=== PATIENT | female | born 1990 | race Caucasian/White ===

== ENCOUNTER 2016-08-08 20:10 | Inpatient (IN) | payer MEDICAID ==
[2016-08-08] MEDS ORDERED: ZOLPIDEM TARTRATE 5 MG TABLET PO PRN (20:37)
[2016-08-08] MEDS ORDERED: RINGERS SOLUTION,LACTATED 1,000 ML IV PRN (20:37)
[2016-08-08] MEDS ORDERED: MAG HYDROX/AL HYDROX/SIMETH SUSP 30 ML UDCUP PO PRN (20:37)
[2016-08-08] MEDS ORDERED: ACETAMINOPHEN 325 MG TABLET PO PRN (20:37)
[2016-08-08] MEDS ORDERED: RINGERS SOLUTION,LACTATED 300 ML IV ONE (20:37)
[2016-08-08] MEDS ORDERED: DINOPROSTONE 10 MG VAGINAL INSERT.SR ONE (21:21)
[2016-08-08 21:32] LABS: ABSOLUTE EOSINOPHILS # (AUTO) 0.1 10^3/uL (0.0-0.6); ABSOLUTE LYMPHOCYTES (AUTO) 1.1 10^3/uL (0.5-4.7); ABSOLUTE MONOCYTES (AUTO) 0.5 10^3/uL (0.1-1.4); ABSOLUTE NEUT (AUTO) 7.3 10^3/uL (1.7-8.2); BASOPHILS % (AUTO) 0.2 % (0-2); EOSINOPHILS % (AUTO) 0.6 % (0-6); HEMATOCRIT 33.9 % (36.0-47.0); HEMOGLOBIN 11.8 g/dL (12.0-15.5); HGB HCT DIFFERENCE 1.5; LYMPHOCYTES % (AUTO) 12.2 % (13-45); MEAN CORPUSCULAR HEMOGLOBIN 30.4 pg (27.0-33.4); MEAN CORPUSCULAR HGB CONC 34.6 g/dL (32.0-36.0); MEAN CORPUSCULAR VOLUME 88 fl (80-97); MONOCYTES % (AUTO) 5.7 % (3-13); RED BLOOD COUNT 3.87 10^6/uL (3.72-5.28); RED CELL DISTRIBUTION WIDTH 16.1 % (11.5-14.0); SEGMENTED NEUTROPHILS % (AUTO) 81.3 % (42-78)
[2016-08-08 21:33] LABS: APPEARANCE,URINE CLOUDY; BILIRUBIN,URINE NEGATIVE (NEGATIVE); GLUCOSE, URINE NEGATIVE (NEGATIVE); KETONES,URINE NEGATIVE (NEGATIVE); LEUKOCYTE ESTERASE,URINE MODERATE (NEGATIVE); NITRITE,URINE NEGATIVE (NEGATIVE); PROTEIN,URINE NEGATIVE (NEGATIVE); URINE SPECIFIC GRAVITY 1.016; UROBILINOGEN,URINE NEGATIVE mg/dL (<2.0)
[2016-08-08 21:48] LABS: URINE BARBITURATES SCREEN NEGATIVE; URINE METHADONE SCREEN NEGATIVE; URINE OPIATES LOW NEGATIVE; URINE PHENCYCLIDINE SCREEN NEGATIVE
[2016-08-08] MEDS ORDERED: DINOPROSTONE 10 MG VAGINAL INSERT.SR PV ONE (22:15)
[2016-08-09] MEDS ORDERED: OXYTOCIN/NORMAL SALINE 20 UNIT/1,000 ML RTUINJ ONE ×2 (10:53→22:36)
[2016-08-09] MEDS ORDERED: OXYTOCIN/NORMAL SALINE 1,000 ML IV PRN ×2 (11:14→22:57)
[2016-08-09] MEDS ORDERED: NALBUPHINE HCL INJ 10 MG/1 ML AMPULE ONE (19:34)
[2016-08-09] MEDS ORDERED: ONDANSETRON HCL 8 MG TABLET ONE (19:35)
[2016-08-09] MEDS ORDERED: NALBUPHINE HCL INJ 10 MG/1 ML AMPULE INJ ONE (20:00)
[2016-08-09] MEDS ORDERED: ONDANSETRON HCL 8 MG TABLET PO ONE (20:00)
[2016-08-09] MEDS ORDERED: EPHEDRINE SULFATE INJ 50 MG/1 ML AMPULE IV PRN (20:42)
[2016-08-09] MEDS ORDERED: BUPIVACAINE HCL 0.25 % INJ/PF (2.5 MG/1 ML) 30 ML VIAL INFIL ONE (20:42)
[2016-08-09] MEDS ORDERED: EPHEDRINE SULFATE INJ 50 MG/1 ML AMPULE IV ONE (20:42)
[2016-08-09] MEDS ORDERED: BENZOIN/ALOE VERA/STORAX/TOLU TINCTURE 60 ML TP PRN (20:42)
[2016-08-09] MEDS ORDERED: FENTANYL/BUPIVACAINE/NS/PF 100 ML EPI PRN (20:42)
[2016-08-09] MEDS ORDERED: BUPIVACAINE HCL 0.25 % INJ/PF (2.5 MG/1 ML) 30 ML VIAL ONE (20:55)
[2016-08-09] MEDS ORDERED: FENTANYL/BUPIVACAINE/NS/PF 200 MCG/100 ML RTUINJ EPI ONE (20:55)
[2016-08-09] MEDS ORDERED: EPHEDRINE SULFATE INJ 50 MG/1 ML AMPULE ONE (20:55)
[2016-08-09] MEDS ORDERED: LIDOCAINE 1% INJ-PF (10 MG/ML) 30 ML SDV ONE (22:35)
[2016-08-09] MEDS ORDERED: MISOPROSTOL 0.2 MG TABLET ONE (22:35)
[2016-08-09] MEDS ORDERED: BENZOCAINE/MENTHOL AEROSOL SPRAY 56 ML TOP PRN (22:57)
[2016-08-09] MEDS ORDERED: ZOLPIDEM TARTRATE 5 MG TABLET PO PRN (22:57)
[2016-08-09] MEDS ORDERED: ACETAMINOPHEN WITH CODEINE #3 TABLET PO PRN (22:57)
[2016-08-09] MEDS ORDERED: DIBUCAINE 1% OINTMENT 28 GM TP PRN (22:57)
[2016-08-09] MEDS ORDERED: MEASLES,MUMPS&RUBELLA VACC/PF 0.5 ML VIAL SUBCUT PRN (22:57)
[2016-08-09] MEDS ORDERED: DIPH/PERTUSS(ACELL)/TETANUS VAC/PF 0.5 ML SYR (>=10YO) IM PRN (22:57)
[2016-08-09] MEDS ORDERED: IBUPROFEN 800 MG TABLET ONE (23:48)
[2016-08-10] MEDS: ACETAMINOPHEN WITH CODEINE #3 TABLET PO PRN ×4 (01:09→21:45)
[2016-08-10] MEDS: IBUPROFEN 800 MG TABLET PO SCH ×3 (05:39→21:45)
[2016-08-10 07:16] LABS: HEMATOCRIT 30.4 % (36.0-47.0); HEMOGLOBIN 10.5 g/dL (12.0-15.5); HGB HCT DIFFERENCE 1.1; MEAN CORPUSCULAR HEMOGLOBIN 30.4 pg (27.0-33.4); MEAN CORPUSCULAR HGB CONC 34.6 g/dL (32.0-36.0); MEAN CORPUSCULAR VOLUME 88 fl (80-97); RED BLOOD COUNT 3.45 10^6/uL (3.72-5.28); WHITE BLOOD COUNT 11.1 10^3/uL (4.0-10.5)
--- NOTE | 2016-08-10 08:52 | PDOC PROGRESS REPORT ---
Subjective-OB Subjective: Post Delivery Day: 26 year old. c/o migraine LOUIE behind left eye-has hx frequent migraines, usu responsive to Ibuprofen. Physical Exam (OB) Vital Signs: Temp Pulse Resp BP Pulse Ox 97.6 F 93 15 131/72 H 100 08/10/16 07:38 08/10/16 07:38 08/10/16 07:38 08/10/16 07:38 08/10/16 07:38 Intake & Output 08/09/16 08/10/16 08/11/16 06:59 06:59 06:59 Weight 136.985 kg - Lochia Lochia Amount: Small 10-25 ml Lochia Color: Rubra/Red - Abdomen Description: Soft, Round Hernia Present: No Bowel Sounds: Normoactive Flatus Presence: Absent Stool: No Fundal Description: Firm, Midline Fundal Height: u/u - u/2 Objective-Diagnostic Laboratory: 08/10/16 06:38 08/10/16 06:38 WBC 11.1 H RBC 3.45 L Hgb 10.5 L Hct 30.4 L MCV 88 MCH 30.4 MCHC 34.6 RDW 16.0 H Plt Count 161
[2016-08-10] MEDS: FERROUS SULFATE 325 MG TABLET PO SCH ×2 (10:57→17:52)
[2016-08-10] MEDS: PRENATAL VITAMIN W-O CA NO5/FE FUMARATE/FA CAPSULE PO SCH (10:58)
[2016-08-10] MEDS: DOCUSATE SODIUM 100 MG CAPSULE PO SCH ×2 (10:58→17:52)
[2016-08-10] MEDS: SENNOSIDES/DOCUSATE 8.6-50 MG 1 EACH TABLET PO SCH (10:58)
[2016-08-11] MEDS: IBUPROFEN 800 MG TABLET PO SCH ×3 (05:49→21:39)
[2016-08-11] MEDS: ACETAMINOPHEN WITH CODEINE #3 TABLET PO PRN ×3 (05:52→15:25)
--- NOTE | 2016-08-11 08:38 | PDOC PROGRESS REPORT ---
Subjective-OB Subjective: Post Delivery Day: 26 year old. Still having headaches when upright. States anesthesiologist to recheck her today. Wants to go home if headache resolved. Physical Exam (OB) Vital Signs: Temp Pulse Resp BP Pulse Ox 97.7 F 70 18 106/55 L 100 08/10/16 20:01 08/10/16 20:01 08/10/16 20:01 08/10/16 20:01 08/10/16 20:01 Intake & Output 08/10/16 08/11/16 08/12/16 06:59 06:59 06:59 Intake Total 450 Balance 450 - Lochia Lochia Amount: Scant < 10 ml Lochia Color: Rubra/Red - Abdomen Description: Soft Hernia Present: No Bowel Sounds: Normoactive Flatus Presence: Present Stool: No Fundal Description: Firm, Midline Fundal Height: u/u - u/2 Objective-Diagnostic Laboratory: 08/10/16 06:38
--- NOTE | 2016-08-11 08:45 | PDOC DISCHARGE SUMMARY ---
Final Diagnosis Discharge Date: 08/11/16 - Final Diagnosis (1) Abnormal Pap smear of cervix Is this a current diagnosis for this admission?: Yes (2) Delivery normal Is this a current diagnosis for this admission?: Yes (3) Obesity Is this a current diagnosis for this admission?: Yes (4) Is this a current diagnosis for this admission?: Yes Discharge Data - Discharge Medication Home Medications: Pnv W-O Ca No5/Fe Fumarate/FA [-U Multiple Vitamin Capsule] 1 each PO ACBRKFST 09/13/11 Docusate Sodium [Colace 100 mg Capsule] 100 mg PO BID #30 capsule 08/11/16 Ferrous Sulfate [Feosol 325 mg Tablet] 325 mg PO DAILY #30 tablet 08/11/16 Ibuprofen [Motrin 800 mg Tablet] 800 mg PO Q8 #30 tablet 08/11/16 Gestational Age: 41.0 wks Reason(s) for Admission: Induction of Labor Procedures: NST Intrapartum Procedure(s): Spontaneous Vaginal Delivery - Data Baby 1 Male at 1 minute: 8 at 5 minutes: 9 Weight: 3.742 kg Home with Mother: Yes Complications: No - Diagnosis Test Laboratory: Temp Pulse Resp BP Pulse Ox 97.7 F 70 18 106/55 L 100 08/10/16 20:01 08/10/16 20:01 08/10/16 20:01 08/10/16 20:01 08/10/16 20:01 08/08/16 08/08/16 08/10/16 20:26 21:08 06:38 RBC 3.87 3.45 L Hgb 11.8 L 10.5 L Hct 33.9 L 30.4 L Urine Opiates Screen NEGATIVE - Discharge information/Instructions Discharge Activity: Activity As Tolerated, Balance Activity w/Rest, No Lifting Over 10 Pounds, Pelvic Rest, Slowly Increase Activity, No tub bath Discharge Diet: Regular Disposition: HOME, SELF-CARE Follow up with: [facility] in: 4, Weeks
[2016-08-11] MEDS: FERROUS SULFATE 325 MG TABLET PO SCH ×2 (09:27→17:40)
[2016-08-11] MEDS: SENNOSIDES/DOCUSATE 8.6-50 MG 1 EACH TABLET PO SCH (09:27)
[2016-08-11] MEDS: PRENATAL VITAMIN W-O CA NO5/FE FUMARATE/FA CAPSULE PO SCH (09:27)
[2016-08-11] MEDS: DOCUSATE SODIUM 100 MG CAPSULE PO SCH ×2 (09:28→17:41)
[2016-08-11] MEDS ORDERED: RINGERS SOLUTION,LACTATED 500 ML IV ONE (19:15)
[2016-08-12] MEDS: IBUPROFEN 800 MG TABLET PO SCH (06:30)
--- NOTE | 2016-08-12 09:04 | PDOC PROGRESS REPORT ---
Subjective-OB Subjective: Post Delivery Day: 26 year old. Denies any needs at this time. States headaches better since blood patch done. Ready to go home. Physical Exam (OB) Vital Signs: Temp Pulse Resp BP Pulse Ox 98.4 F 73 18 137/69 H 100 08/11/16 19:35 08/11/16 19:35 08/11/16 19:35 08/11/16 19:35 08/11/16 19:35 Intake & Output 08/11/16 08/12/16 08/13/16 06:59 06:59 06:59 Intake Total 450 3410 Balance 450 3410 Baby 1 Male 3.742 kg - Lochia Lochia Amount: Scant < 10 ml Lochia Color: Serosa/Brown - Abdomen Description: Soft, Round Hernia Present: No Bowel Sounds: Normoactive Flatus Presence: Present Stool: No Fundal Description: Firm, Midline Fundal Height: u/u - u/2 Objective-Diagnostic Laboratory: 08/10/16 06:38 Assessment and Plan(PN) - Assessment and Plan (1) Abnormal Pap smear of cervix Is this a current diagnosis for this admission?: Yes (2) Delivery normal Is this a current diagnosis for this admission?: Yes (3) Obesity Is this a current diagnosis for this admission?: Yes (4) Is this a current diagnosis for this admission?: Yes
--- NOTE | 2016-08-12 09:07 | PDOC DISCHARGE SUMMARY ---
Final Diagnosis Discharge Date: 08/12/16 - Final Diagnosis (1) Abnormal Pap smear of cervix Is this a current diagnosis for this admission?: Yes (2) Delivery normal Is this a current diagnosis for this admission?: Yes (3) Obesity Is this a current diagnosis for this admission?: Yes (4) Is this a current diagnosis for this admission?: Yes Discharge Data - Discharge Medication Home Medications: Pnv W-O Ca No5/Fe Fumarate/FA [-U Multiple Vitamin Capsule] 1 each PO ACBRKFST 09/13/11 Docusate Sodium [Colace 100 mg Capsule] 100 mg PO BID #30 capsule 08/11/16 Ferrous Sulfate [Feosol 325 mg Tablet] 325 mg PO DAILY #30 tablet 08/11/16 Ibuprofen [Motrin 800 mg Tablet] 800 mg PO Q8 #30 tablet 08/11/16 Gestational Age: 41.0 wks Reason(s) for Admission: Induction of Labor Procedures: NST, Ultrasound Intrapartum Procedure(s): Spontaneous Vaginal Delivery - Data Baby 1 Male at 1 minute: 8 at 5 minutes: 9 Weight: 3.742 kg - Diagnosis Test Laboratory: Temp Pulse Resp BP Pulse Ox 98.4 F 73 18 137/69 H 100 08/11/16 19:35 08/11/16 19:35 08/11/16 19:35 08/11/16 19:35 08/11/16 19:35 08/08/16 08/08/16 08/10/16 20:26 21:08 06:38 RBC 3.87 3.45 L Hgb 11.8 L 10.5 L Hct 33.9 L 30.4 L Urine Opiates Screen NEGATIVE - Discharge information/Instructions Discharge Activity: Activity As Tolerated, Balance Activity w/Rest, No Lifting Over 10 Pounds, Pelvic Rest, Slowly Increase Activity, No tub bath Discharge Diet: Regular Disposition: HOME, SELF-CARE Follow up with: [facility] in: 4, Weeks
[2016-08-12] MEDS: SENNOSIDES/DOCUSATE 8.6-50 MG 1 EACH TABLET PO SCH (11:03)
[2016-08-12] MEDS: FERROUS SULFATE 325 MG TABLET PO SCH (11:03)
[2016-08-12] MEDS: ACETAMINOPHEN WITH CODEINE #3 TABLET PO PRN (11:03)
[2016-08-12] MEDS: DOCUSATE SODIUM 100 MG CAPSULE PO SCH (11:03)
[2016-08-12] MEDS: PRENATAL VITAMIN W-O CA NO5/FE FUMARATE/FA CAPSULE PO SCH (11:03)
[2016-08-12 12:24] VITALS: BP 130/70
--- NOTE | 2016-08-14 12:03 | Delivery Summary ---
Del Sum A-C Datetime Report Generated by CPN: 08/14/2016 12:03 DELIVERY PERSONNEL DELIVERY PERSONNEL: ,[id number] Delivery Doctor:: Ciarra Tang MD Labor and Delivery Nurse:: Melia Ayers RNadvertising representative Nurse:: Adina Bergman RN Plc Technician/SPECTACLE TRUER: Nichole Semar, WATCH TRAIN ASSEMBLER MATERNAL INFORMATION Delivery Anesthesia: Epidural Medications After Delivery: Pitocin Drip 20 Units/1000ml NSS Estimated Blood Loss (ml): 200 Maternal Complications: None LABOR SUMMARY EDC: 08/02/2016 00:00 No. Babies in Womb: 1 Attempted: No Labor Anesthesia: Epidural LABOR INFORMATION Reason for Induction: Post Dates Onset of Labor: 08/09/2016 20:38 Complete Dilatation: 08/09/2016 22:38 Cervical Ripening Agents: Cervidil Oxytocin: Induction Group B Beta Strep: Negative Antibiotics # of Doses: N/A Antibiotics Time of Last Dose: N/A Steroids Given: None Reason Steroids Not Administered: Not Applicable MEMBRANES Membranes Rupture Method: Artificial Rupture of Membranes: 08/09/2016 22:37 Length of Rupture (hr): 0.18 Amniotic Fluid Color: Clear Amniotic Fluid Amount: Moderate Amniotic Fluid Odor: Normal STAGES OF LABOR Stage 1 hr: 2 Stage 1 min: 0 Stage 2 hr: 0 Stage 2 min: 10 Stage 3 hr: 0 Stage 3 min: 5 Total Time in Labor hr: 2 Total Time in Labor min: 15 VAGINAL DELIVERY Episiotomy: None Laceration Extension: N/A Laceration Type: None Laceration Repair: No BABY A INFORMATION Infant Delivery Date/Time: 08/09/2016 22:48 Method of Delivery: Vaginal Born in Route : No : N/A Forceps: N/A Vacuum Extraction: N/A Shoulder Dystocia : No PRESENTATION/POSITION BABY A Presentation: Cephalic Cephalic Presentation: Vertex Vertex Position: Left Occipital Anterior Breech Presentation: N/A PLACENTA INFORMATION BABY A Placenta Delivery Time : 08/09/2016 22:53 Placenta Method of Delivery: Spontaneous Placenta Status: Delivered SCORES BABY A Heart Rate 1 min: >100 bpm Resp Effort 1 min: Good Cry Reflex Irritability 1 min: Cough or Sneeze or Pulls Away Muscle Tone 1 min: Active Motion Color 1 min: Blue/Pale Resuscitation Effort 1 min: Tactile Stimulation SCORE 1 MIN: 8 Heart Rate 5 min: >100 bpm Resp Effort 5 min: Good Cry Reflex Irritability 5 min: Cough or Sneeze or Pulls Away Muscle Tone 5 min: Active Motion Color 5 min: Body [place], Extremities Blue Resuscitation Effort 5 min: Tactile Stimulation SCORE 5 MIN: 9 INFORMATION BABY A Gestational Age at Delivery: 41.0 Gestational Status: Late Term- 41- 41.6 Weeks Infant Outcome : Liveborn Infant Condition : Stable Sex: Male IDENTIFICATION BABY A Infant Verification Date/Time: 08/09/2016 22:56 ID Band Number: [id number] Infant RN Verifying Infant: Mesfin Bergman RN Additional Verifying Personnel: Maren Stafford US WEIGHT/LENGTH BABY A Infant Birthweight (gm): 3730 Weight (lb): 8 Infant Weight (oz): 4 Length (in): 20.50 Length (cm): 52.07 CORD INFORMATION BABY A No. Cord Vessels: 3 Nuchal Cord : N/A Cord Blood Taken: Yes-For Eval (Mom's Blood Type - or O+) Suction: None ASSESSMENT BABY A Infant Complications: None Physical Findings at Delivery: Within Normal Limits Infant Respirations: Appears Normal Skin to Skin: Yes Skin to Skin Time (min): 60 Foreman Or Supervisor And Operator/ALS Called : No Infant Care By: Mesfin Bergman RN Transferred To: Remains with Mother SIGNATURES Signature: with User ID: Luis Alfredo
--- NOTE | 2016-08-14 12:04 | Admission Physical ---
Datetime Report Generated by CPN: 08/14/2016 12:03 CURRENT ADMISSION Chief Complaint: Scheduled Induction of Labor Indication for Induction: Post Dates Admit Plan: Admit to Unit; Initiate Labor Induction Protocol ALLERGIES Medication Allergies: No Medication Allergies: red dye/Hives (08/08/2016) Medication Allergies: NKDA Latex: No Latex Allergies Food Allergies: Red dye #3 Environmental Allergies: None OBSTETRICAL HISTORY EDC: 08/02/2016 00:00 : 3 Para: 2 Term: 2 : 0 SAB: 0 IAB: 0 Ectopic: 0 Livin Cesareans: 0 VBACs: 0 Multiple Births: 0 Gestational Diabetes: No Rh Sensitization: No Incompetent Cervix: No JOHN: No Infertility: No ART Treatment: No Uterine Anomaly: No IUGR: No Hx Previous C/S: No Macrosomia: No Hx Loss/Stillborn: No PIH: No Hx : No Placenta Previa/Abruption: No Depression/PP Depression: No PTL/PROM: No SEE RECORDS Alcohol: No Marijuana : No Cocaine: No Cigarettes: Never Smoker. [id number] MEDICAL HISTORY Diabetes: No Blood Transfusion: No Pulmonary Disease (Asthma, TB): No Breast Disease: No Hypertension: No Hand Trucker Surgery: No Heart Disease: No Hosp/Surgery: No Autoimmune Disorder: No Anesthetic Complications: No Kidney Disease: No Abnormal Pap Smear: Yes Neuro/Epilepsy: No Other Medical Diseases: No Hepatitis/Liver Disease: No Significant Family History: No Varicosities/Phlebitis: No Trauma/Violence : No Medical History Comments: Abnormal pap-ASCUS with HRHPV; Colpo w/biopsy-in 07/17/16-LGSIL INFECTIOUS HISTORY Gonorrhea: No Genital Herpes: No Chlamydia: No Tuberculosis: No Syphilis: No Hepatitis: No HIV/AIDS Exposure: No Rash or Viral Illness: No HPV: No PHYSICAL EXAM General: Normal HEENT: Normal Neurologic: Normal Thyroid: Normal Heart: Normal Lungs: Normal Breast: Normal Back: Normal Abdomen: Normal Genitourinary Exam: Normal Extremities: Normal DTRs: Normal Pelvic Type: Adequate Vital Signs: Reviewed VAGINAL EXAM Dilatation: 1 Effacement: 50 Station: -3 MEMBRANES Pooling: Negative FETUS A Monitoring: External US FHR- Baseline: 130 Variability: Moderate 6-25bpm Accelerations: 10X10 Decelerations: None Estimated Weight (gm): 4000 Presentation: Vertex PLANS FOR LABOR AND DELIVERY Labor and Delivery: None Pain Management: Epidural Feeding Preference: Both Circumcision: Yes INFORMED CONSENT Signature: with User ID: Luis Alfredo
== END 2016-08-12 12:55 | disposition home or self-care (01) | DRG 775 ==
LOC: LR 20:10 → 2S 08-10 00:59
PROVIDERS: ADMIT Obstetrics & Gynecology; ATTEND Obstetrics & Gynecology
PROC: 4A1HXCZ Monitoring of Products of Conception, Cardiac Rate, External Approach (ICD-10-PCS; 2016-08-08)
PROC: 3E0P7GC Introduction of Other Therapeutic Substance into Female Reproductive, Via Natural or Artificial Opening (ICD-10-PCS; 2016-08-08)
PROC: 10E0XZZ Delivery of Products of Conception, External Approach (ICD-10-PCS; principal; 2016-08-09)
PROC: 3E033VJ Introduction of Other Hormone into Peripheral Vein, Percutaneous Approach (ICD-10-PCS; 2016-08-09)
DX: O48.0 Post-term pregnancy (principal); O99.355 Diseases of the nervous system complicating the puerperium; Z68.41 Body mass index [BMI] 40.0-44.9, adult; O99.214 Obesity complicating childbirth; E66.9 Obesity, unspecified; G43.909 Migraine, unspecified, not intractable, without status migrainosus; Z3A.41 41 weeks gestation of pregnancy; Z37.0 Single live birth
CPT/HCPCS: 36415; 62273; 80307; 81005; 85025; 85027; 86592; 86850; 86900; 86901; 94760; J2300; J2590; J3490; S0119

== ENCOUNTER 2017-03-04 17:37 | Emergency (ER) | payer SELFPAY ==
--- NOTE | 2017-03-04 19:21 | ER Document Report ---
ED Medical Screen (RME) - General Chief Complaint: Abdominal pain, vomiting Stated Complaint: ABDOMINAL PAIN Time Seen by Provider: 03/04/17 19:20 Notes: Patient states that she has been having abdominal pain as well as some loose stool with blood in it. She also had some nausea. TRAVEL OUTSIDE OF THE [place] IN LAST 30 DAYS: No - Related Data Allergies/Adverse Reactions: red dye Allergy (Unknown, Verified 08/11/16 06:25) Hives red dye #3 Allergy (Mild, Uncoded 08/08/16 20:28) Hives Home Medications: Current Home Medications No Home Medications 03/04/17 [History] Past Medical History - Immunizations Hx Diphtheria, Pertussis, Tetanus Vaccination: Yes Physical Exam - Vital signs Vitals: Temp Pulse Resp BP Pulse Ox 98.3 F 88 14 139/96 H 98 03/04/17 17:42 03/04/17 17:42 03/04/17 17:42 03/04/17 17:42 03/04/17 17:42 Course - Vital Signs Vital signs: Temp Pulse Resp BP Pulse Ox 98.3 F 88 14 139/96 H 98 03/04/17 17:42 03/04/17 17:42 03/04/17 17:42 03/04/17 17:42 03/04/17 17:42
[2017-03-04 20:01] LABS: APPEARANCE,URINE CLEAR; BILIRUBIN,URINE NEGATIVE (NEGATIVE); GLUCOSE, URINE NEGATIVE (NEGATIVE); KETONES,URINE NEGATIVE (NEGATIVE); LEUKOCYTE ESTERASE,URINE TRACE (NEGATIVE); NITRITE,URINE NEGATIVE (NEGATIVE); PROTEIN,URINE NEGATIVE (NEGATIVE); URINE SPECIFIC GRAVITY 1.019
[2017-03-04 20:10] LABS: ABSOLUTE EOSINOPHILS # (AUTO) 0.1 10^3/uL (0.0-0.6); ABSOLUTE LYMPHOCYTES (AUTO) 1.6 10^3/uL (0.5-4.7); ABSOLUTE MONOCYTES (AUTO) 0.3 10^3/uL (0.1-1.4); ABSOLUTE NEUT (AUTO) 4.2 10^3/uL (1.7-8.2); BASOPHILS % (AUTO) 0.3 % (0-2); EOSINOPHILS % (AUTO) 2.2 % (0-6); HEMATOCRIT 37.2 % (36.0-47.0); HGB HCT DIFFERENCE 1.8; LYMPHOCYTES % (AUTO) 25.5 % (13-45); MEAN CORPUSCULAR HEMOGLOBIN 29.7 pg (27.0-33.4); MEAN CORPUSCULAR VOLUME 85 fl (80-97); MONOCYTES % (AUTO) 4.6 % (3-13); RED BLOOD COUNT 4.39 10^6/uL (3.72-5.28); RED CELL DISTRIBUTION WIDTH 13.6 % (11.5-14.0); SEGMENTED NEUTROPHILS % (AUTO) 67.4 % (42-78); WHITE BLOOD COUNT 6.3 10^3/uL (4.0-10.5)
[2017-03-04 20:33] LABS: ALANINE AMINOTRANSFERASE 61 U/L (9-52); ALBUMIN 3.9 g/dL (3.5-5.0); ALKALINE PHOSPHATASE 65 U/L (38-126); ANION GAP 11 (5-19); ASPARTATE AMINO TRANSFERASE 31 U/L (14-36); BILIRUBIN,DIRECT 0.3 mg/dL (0.0-0.4); BILIRUBIN,TOTAL 0.3 mg/dL (0.2-1.3); BLOOD UREA NITROGEN 23 mg/dL (7-20); CARBON DIOXIDE 26 mmol/L (22-30); CHLORIDE 104 mmol/L (98-107); CREATININE RESULT 0.78 mg/dL (0.52-1.25); GLUCOSE 97 mg/dL (75-110); POTASSIUM 4.2 mmol/L (3.6-5.0); SODIUM 140.8 mmol/L (137-145); TOTAL PROTEIN 6.2 g/dL (6.3-8.2)
--- NOTE | 2017-03-04 21:54 | ER Document Report ---
ED GI/ - General Chief Complaint: Abdominal pain, vomiting Stated Complaint: ABDOMINAL PAIN Time Seen by Provider: 03/04/17 19:20 Notes: Patient is a 26 year old female that comes to the ED for chief complaint of abdominal pain started 3 days ago, she states she had 2 episodes of vomiting yesterday although this resolved, she states that she had a loose bowel movement with some bright red blood in it. She has not had any bleeding since last night. She denies current abdominal pain, nausea, she denies any fever, denies any recent travel, suspicious foods, or recent antibiotics. She denies any daily medications or surgeries. LMP 10 weeks ago, delivered a child 6 months ago and states her cycles are still irregular. TRAVEL OUTSIDE OF THE [place] IN LAST 30 DAYS: No - Related Data Allergies/Adverse Reactions: red dye Allergy (Unknown, Verified 08/11/16 06:25) Hives red dye #3 Allergy (Mild, Uncoded 08/08/16 20:28) Hives Past Medical History - General Information source: Patient - Social History Smoking Status: Never Smoker Frequency of alcohol use: None Drug Abuse: None Lives with: Family Family History: Reviewed & Not Pertinent Patient has suicidal ideation: No Patient has homicidal ideation: No - Medical History Medical History: Negative Renal/ Medical History: Denies: Hx Peritoneal Dialysis Surgical Hx: Negative - Immunizations Immunizations up to date: Yes Hx Diphtheria, Pertussis, Tetanus Vaccination: Yes Review of Systems - Review of Systems Constitutional: No symptoms reported EENT: No symptoms reported Cardiovascular: See HPI Respiratory: No symptoms reported Gastrointestinal: See HPI Genitourinary: No symptoms reported Female Genitourinary: No symptoms reported Musculoskeletal: No symptoms reported Skin: No symptoms reported Hematologic/Lymphatic: No symptoms reported Neurological/Psychological: No symptoms reported Physical Exam - Vital signs Vitals: Temp Pulse Resp BP Pulse Ox 98.3 F 88 14 139/96 H 98 03/04/17 17:42 03/04/17 17:42 03/04/17 17:42 03/04/17 17:42 03/04/17 17:42 Interpretation: Normal - General General appearance: Appears well, Alert In distress: None - HEENT Head: Normocephalic, Atraumatic Eyes: Normal Pupils: PERRL - Respiratory Respiratory status: No respiratory distress Chest status: Nontender Breath sounds: Normal Chest palpation: Normal - Cardiovascular Rhythm: Regular Heart sounds: Normal auscultation Murmur: No - Abdominal Inspection: Normal Distension: No distension Bowel sounds: Normal Tenderness: Nontender. No: Tender, McBurney's point, Fitzpatrick's sign, Guarding Organomegaly: No organomegaly - Back Back: Normal, Nontender. No: Tender - Extremities General upper extremity: Normal inspection, Nontender, Normal strength, Normal temperature General lower extremity: Normal inspection, Nontender, Normal strength, Normal temperature - Neurological Neuro grossly intact: Yes Cognition: Normal Orientation: AAOx4 [place] Coma Scale Eye Opening: Spontaneous [place] Coma Scale Verbal: Oriented [place] Coma Scale Motor: Obeys Commands Naty Coma Scale Total: 15 Speech: Normal Cranial nerves: Normal Cerebellar coordination: Normal Motor strength normal: LUE, RUE, LLE, RLE Additional motor exam normals: Equal rigging engineer Sensory: Normal - Psychological Associated symptoms: Normal affect, Normal mood - Skin Skin Temperature: Warm Skin Moisture: Dry Skin Color: Normal Course - Re-evaluation Re-evalutation: Soft nontender abdomen. Well-appearing patient. Unremarkable vital signs. Normal examination otherwise. CBC does not show anemia or leukocytosis, chemistry unremarkable, urinalysis unremarkable, test is negative. Discussed with patient all details. Recommended a rectal exam to establish if she has external or internal hemorrhoids, although her reported symptoms are suggestive of internal hemorrhoids. Patient declines. She requests treatment without rectal examination. I also offered to test her stools, she declined this as well. Recommended stool softener, symptom management, if symptoms continue with bright red blood per rectum to see gastroenterology, and to return if she worsens with severe bleeding, fever, pain, or any other concerning symptoms. Patient states satisfaction and agreement. - Vital Signs Vital signs: Temp Pulse Resp BP Pulse Ox 97.4 F 71 16 131/73 H 99 03/04/17 22:19 03/04/17 22:19 03/04/17 22:19 03/04/17 22:19 03/04/17 22:19 - Laboratory Result Diagrams: 03/04/17 19:55 03/04/17 19:55 Laboratory results interpreted by me: 03/04/17 03/04/17 19:25 19:55 BUN 23 H ALT 61 H Total Protein 6.2 L Urine Urobilinogen 2.0 H Ur Leukocyte Esterase TRACE H Discharge - Discharge Clinical Impression: Generalized abdominal pain, Rectal bleeding Condition: Stable Disposition: HOME, SELF-CARE Additional Instructions: Your laboratory workup, examination, and vital signs do not show any concerning abnormalities. This is most likely from an internal hemorrhoid, I recommend you take the Colace as prescribed for the next 2-3 days, avoid any straining on the toilet, drink plenty of fluids, eat high-fiber diet. If symptoms of rectal bleeding continue please follow-up with the gastroenterology referral for additional management. Return to emergency department for any concerning or worsening symptoms including passing out, returned vomiting, return or worsening pain, fever, or any other concerning symptoms. Hemorrhoids Hemorrhoids are formed by enlargement of veins around the anus. The cause is increased pressure in the veins, from or straining at bowel movements. Hemorrhoids often cause itching and bleeding with bowel movements. When a hemorrhoid becomes clotted, severe pain and swelling result. Soothing creams and suppositories are often prescribed. Warm sitz-baths may also decrease pain, swelling, and itching. Eat a high-fiber diet. Stool softeners such as Metamucil will help. Keep the area very clean. Medicated cleansing pads (such as Tucks) are useful after bowel movements. A hose-mounted shower unit (like a shower massager at low water pressure) can be used to clean around tender hemorrhoid tags. You should call the doctor or return if you develop fever, increasing pain , or an enlarging mass around the anus, or if you simply fail to improve with treatment. Prescriptions: Ondansetron [Zofran Odt 4 mg Tablet] 1 - 2 tab PO Q4H PRN #15 tab.rapdis PRN Reason: For Nausea/Vomiting Polyethylene Glycol 3350 [Miralax Powder 17 gm/Packet] 1 packet PO BID PRN #1 pkg PRN Reason: Referrals: BISI CLARK MD [ACTIVE STAFF] - Follow up as needed CAMMIE BEACH MD [ACTIVE STAFF] - Follow up as needed
[2017-03-04 22:20] VITALS: BP 131/73
== END 2017-03-04 22:19 | disposition home or self-care (01) ==
LOC: ER 17:37
DX: R10.84 Generalized abdominal pain (principal); K62.5 Hemorrhage of anus and rectum
CPT/HCPCS: 36415; 80053; 81001; 81025; 85025; 99284

== ENCOUNTER 2017-08-25 19:04 | Emergency (ER) | payer SELFPAY ==
[2017-08-25] MEDS ORDERED: ONDANSETRON HCL INJ/PF 4 MG/2 ML SDV IV ONE (19:23)
[2017-08-25] MEDS ORDERED: RINGERS SOLUTION,LACTATED 1,000 ML IV ONE ×2 (19:23→20:21)
[2017-08-25] MEDS ORDERED: ACETAMINOPHEN 325 MG TABLET PO ONE ×2 (19:23→19:47)
--- NOTE | 2017-08-25 19:25 | ER Document Report ---
ED Medical Screen (RME) - General Chief Complaint: Abdominal Pain Stated Complaint: ABDOMINAL PAIN/DIARRHEA Time Seen by Provider: 08/25/17 19:19 Notes: RAPID MEDICAL EVALUATION DISCLOSURE I have seen this patient as part of a Rapid Medical Evaluation and, if applicable, placed any initially appropriate orders. The patient will be seen and fully evaluated, including a full history and physical exam, by a provider ( in Main ED or Fast Track) when a room becomes available. 27-year-old female here with complaints of fevers chills nausea vomiting diarrhea and lower abdominal pain ongoing for the past 2 days. The diarrhea was the initial presenting symptom which had progressively worsened since onset. The lower abdominal pain started the day after and is worse with defecation. She does not have any dysuria hematuria frequency flank/back pain. No known sick contacts. She does not think she ate anything that may have made her sick. EXAM CTAB Moderately tachycardic Minimal left/right lower quadrant and suprapubic TTP TRAVEL OUTSIDE OF THE [place] IN LAST 30 DAYS: No - Related Data Allergies/Adverse Reactions: red dye Allergy (Unknown, Verified 08/11/16 06:25) Hives red dye #3 Allergy (Mild, Uncoded 08/08/16 20:28) Hives Past Medical History Renal/ Medical History: Denies: Hx Peritoneal Dialysis - Immunizations Immunizations up to date: Yes Hx Diphtheria, Pertussis, Tetanus Vaccination: Yes Physical Exam - Vital signs Vitals: Temp Pulse Resp BP Pulse Ox 100.1 F 139 H 16 135/81 H 99 08/25/17 19:10 08/25/17 19:10 08/25/17 19:10 08/25/17 19:10 08/25/17 19:10 Course - Vital Signs Vital signs: Temp Pulse Resp BP Pulse Ox 100.1 F 139 H 16 135/81 H 99 08/25/17 19:10 08/25/17 19:10 08/25/17 19:10 08/25/17 19:10 08/25/17 19:10
[2017-08-25] MEDS ORDERED: KETOROLAC TROMETHAMINE INJ/PF 30 MG/1 ML SDV IV ONE (19:47)
[2017-08-25] MEDS ORDERED: CIPROFLOXACIN HCL 500 MG TABLET PO ONE (20:21)
[2017-08-25] MEDS ORDERED: METRONIDAZOLE 500 MG TABLET PO ONE (20:21)
--- NOTE | 2017-08-25 20:25 | ER Document Report ---
ED General - General Chief Complaint: Abdominal Pain Stated Complaint: ABDOMINAL PAIN/DIARRHEA Time Seen by Provider: 08/25/17 19:19 Notes: Patient is a 27-year-old female without chronic medical problems, no prior abdominal surgical history who presents with 3 days of generalized abdominal cramping, diarrhea, bloody diarrhea, and vomiting. Patient also reports that she has had a fever. Patient states that her symptoms started gradually and have been progressively worsening since onset. She describes her abdominal cramping as being a severe, cramping, intermittent pain that occurs around when she is about to have a bowel movement but is otherwise quite mild and tolerable. Nothing improves or worsens her symptoms. No known sick contacts. She denies a history of similar symptoms in the past. She has not seen her general doctor regarding today's concerns. She notes that the vomiting has since stopped but that her diarrhea does persist. TRAVEL OUTSIDE OF THE [place] IN LAST 30 DAYS: No - Related Data Allergies/Adverse Reactions: red dye Allergy (Unknown, Verified 08/11/16 06:25) Hives red dye #3 Allergy (Mild, Uncoded 08/08/16 20:28) Hives Past Medical History - General Information source: Patient - Social History Smoking Status: Never Smoker Chew tobacco use (# tins/day): No Frequency of alcohol use: Occasional Drug Abuse: None Lives with: Family Family History: Reviewed & Not Pertinent Patient has suicidal ideation: No Patient has homicidal ideation: No Renal/ Medical History: Denies: Hx Peritoneal Dialysis - Immunizations Immunizations up to date: Yes Hx Diphtheria, Pertussis, Tetanus Vaccination: Yes Review of Systems - Review of Systems Notes: Constitutional: Positive for fever. HENT: Negative for sore throat. Eyes: Negative for visual changes. Cardiovascular: Negative for chest pain. Respiratory: Negative for shortness of breath. Gastrointestinal: Positive for abdominal cramping, vomiting, and bloody diarrhea Genitourinary: Negative for dysuria. Musculoskeletal: Negative for back pain. Skin: Negative for rash. Neurological: Negative for headaches, weakness or numbness. 10 point ROS negative except as marked above and in HPI. Physical Exam - Vital signs Vitals: Temp Pulse Resp BP Pulse Ox 100.1 F 139 H 16 135/81 H 99 08/25/17 19:10 08/25/17 19:10 08/25/17 19:10 08/25/17 19:10 08/25/17 19:10 Interpretation: Tachycardic Notes: PHYSICAL EXAMINATION: GENERAL: Appears moderately uncomfortable but in no acute distress HEAD: Atraumatic, normocephalic. EYES: Pupils equal round and reactive to light, extraocular movements intact, sclera anicteric, conjunctiva are normal. ENT: nares patent, oropharynx clear without exudates. Moderately dry mucous membranes. NECK: Normal range of motion, supple without lymphadenopathy LUNGS: Breath sounds clear to auscultation bilaterally and equal. No wheezes rales or rhonchi. HEART: Regular tachycardia without murmurs ABDOMEN: Soft, morbidly obese abdomen, nontender, normoactive bowel sounds. No guarding, no rebound. No masses appreciated. EXTREMITIES: Normal range of motion, no pitting or edema. No cyanosis. NEUROLOGICAL: No focal neurological deficits. Moves all extremities spontaneously and on command. PSYCH: Normal mood, normal affect. SKIN: Warm, Dry, normal turgor, no rashes or lesions noted. Course - Re-evaluation Re-evalutation: 08/25/17 20:24 Presentation of an overall well-appearing female in mild bloody diarrhea and fever as well as generalized abdominal cramping and pain around episodes of bowel movements. We have been seen many patients with similar presentations over the past several days and I suspect this is likely a bacterial enterocolitis. She has no focal abdominal tenderness on examination. No areas of rebound or guarding. Initially the patient was tachycardic with an associated low-grade temperature at 100.1 although below afebrile threshold. Patient does however report that she has had fevers at home up to 103F. Will treat with IV fluids, antiemetics, pain control, obtain basic laboratories, and begin oral antibiotics for coverage of a possible bacterial enterocolitis. No indication for CT imaging at this time given her benign abdominal exam and the report of pain being only related to diarrheal bowel movements. Very low clinical suspicion for an acute appendicitis, mesenteric ischemia, biliary pathology, acute pancreatitis, acute hepatitis, or diverticulitis based on exam , clinical history. 08/25/17 2200 Patient has had improvement of her abdominal pain. She has not had diarrhea while here in the emergency department. She has been able to tolerate oral intake without difficulty. Laboratories overall unremarkable. Patient will be discharged on ciprofloxacin as well as metronidazole. At this time will discharge with return precautions and follow-up recommendations. Verbal discharge instructions given a the bedside and opportunity for questions given. Medication warnings reviewed. Patient is in agreement with this plan and has verbalized understanding of return precautions and the need for primary care follow-up in the next 24-72 hours. - Vital Signs Vital signs: Temp Pulse Resp BP Pulse Ox 98.0 F 139 H 20 132/75 H 99 08/25/17 22:43 08/25/17 19:10 08/25/17 22:43 08/25/17 22:43 08/25/17 22:43 - Laboratory Result Diagrams: 08/25/17 20:00 08/25/17 20:00 Laboratory results interpreted by me: 08/25/17 08/25/17 20:00 20:00 Seg Neutrophils % 84.1 H Lymphocytes % 8.3 L Glucose 111 H Discharge - Discharge Clinical Impression: Bacterial enterocolitis, Abdominal cramping, Bloody diarrhea, Dehydration Nausea and vomiting Qualifiers: Vomiting type: unspecified Vomiting Intractability: non-intractable Qualified Code(s): R11.2 - Nausea with vomiting, unspecified Condition: Stable Disposition: HOME, SELF-CARE Additional Instructions: Your symptoms are most consistent with a likely bacterial colitis. Your being started on antibiotics to treat this. You are also being sent home with a medication called Zofran to use as needed for nausea and/or vomiting. For your pain: Take ibuprofen 600 mg and acetaminophen 1000 mg every 6 hours together as needed for pain. You have also been prescribed a medication called Levsin which you may use as needed. Return if you become unable to tolerate liquids, you have worsening pain your symptoms fail to improve within the next 48 hours, we have any other symptoms that are worrisome to you. Please follow-up with your primary doctor within the next 24-48 hours. Prescriptions: Ciprofloxacin HCl [Cipro 500 mg Tablet] 500 mg PO BID #10 tablet Metronidazole [Flagyl 500 mg Tablet] 500 mg PO Q6H #28 tablet
[2017-08-25 20:29] LABS: ABSOLUTE LYMPHOCYTES (AUTO) 0.5 10^3/uL (0.5-4.7); ABSOLUTE MONOCYTES (AUTO) 0.4 10^3/uL (0.1-1.4); ABSOLUTE NEUT (AUTO) 5.2 10^3/uL (1.7-8.2); BASOPHILS % (AUTO) 0.3 % (0-2); EOSINOPHILS % (AUTO) 0.1 % (0-6); HEMATOCRIT 43.6 % (36.0-47.0); HEMOGLOBIN 15.3 g/dL (12.0-15.5); LYMPHOCYTES % (AUTO) 8.3 % (13-45); MEAN CORPUSCULAR HEMOGLOBIN 29.4 pg (27.0-33.4); MEAN CORPUSCULAR VOLUME 84 fl (80-97); MONOCYTES % (AUTO) 7.2 % (3-13); PLATELET COUNT 239 10^3/uL (150-450); RED BLOOD COUNT 5.19 10^6/uL (3.72-5.28); RED CELL DISTRIBUTION WIDTH 13.3 % (11.5-14.0); SEGMENTED NEUTROPHILS % (AUTO) 84.1 % (42-78); TOTAL CELLS COUNTED % (AUTO) 100 %; WHITE BLOOD COUNT 6.1 10^3/uL (4.0-10.5)
[2017-08-25 20:40] LABS: ALANINE AMINOTRANSFERASE 36 U/L (9-52); ALBUMIN 4.5 g/dL (3.5-5.0); ALKALINE PHOSPHATASE 83 U/L (38-126); ANION GAP 13 (5-19); ASPARTATE AMINO TRANSFERASE 26 U/L (14-36); BILIRUBIN,DIRECT 0.4 mg/dL (0.0-0.4); BILIRUBIN,TOTAL 0.7 mg/dL (0.2-1.3); BLOOD UREA NITROGEN 15 mg/dL (7-20); CALCIUM 9.7 mg/dL (8.4-10.2); CARBON DIOXIDE 25 mmol/L (22-30); CHLORIDE 101 mmol/L (98-107); GLUCOSE 111 mg/dL (75-110); LIPASE 61.5 U/L (23-300); POTASSIUM 3.7 mmol/L (3.6-5.0); SODIUM 138.9 mmol/L (137-145); TOTAL PROTEIN 7.3 g/dL (6.3-8.2)
[2017-08-25] MEDS ORDERED: NORMAL SALINE 1000 ML 1,000 ML IV ONE (21:57)
[2017-08-25 22:54] VITALS: BP 132/75
== END 2017-08-25 22:54 | disposition home or self-care (01) ==
LOC: ER 19:04
DX: E86.0 Dehydration (principal); A09 Infectious gastroenteritis and colitis, unspecified; R10.84 Generalized abdominal pain; R11.10 Vomiting, unspecified; Z91.041 Radiographic dye allergy status
CPT/HCPCS: 99284; 96361; 96374; 96375; 36415; 83690; 84703; 85025; 80053; J1885; J2405; J7030